=== PATIENT | female | born 1995 | race Caucasian/White ===

== ENCOUNTER 2019-08-05 16:33 | Emergency (ER) | payer OTHER, SELFPAY ==
--- NOTE | 2019-08-05 16:43 | DI.RAD.S_ITS ---
PROCEDURE: XR HAND LT MIN 3V INDICATIONS: left hand injury TECHNIQUE: 3 views of the hand(s) acquired. COMPARISON: None. FINDINGS: Bones: No displaced fractures or dislocations. Carpal bones are normally aligned. No suspicious bony lesions. Soft tissues: No suspicious soft tissue calcifications. IMPRESSION: No left hand fractures. Dictated by: Amrik Hill M.D. on 08/05/2019 at 16:05 Approved by: Amrik Hill M.D. on 08/05/2019 at 16:06
[2019-08-05 16:44] VITALS: BP 120/59; PULSE 82; RESP 18; TEMP 36.6; O2SAT 99; BMI 22.6
--- NOTE | 2019-08-05 16:48 | ED.UPPEXIN ---
HPI - Extremity Injury (Upper) <YAZMIN May - Last Filed: 08/05/19 18:49> General Chief Complaint: Extremity Injury, Upper Stated Complaint: LEFT HAND INJURY Time Seen by Provider: 08/05/19 16:36 Source: patient Mode of arrival: Ambulatory Limitations: no limitations History of Present Illness HPI narrative: 24yo female presents to the ED for left hand pain. She states she smacked the back of her left hand on a metal corner a few minutes ago. She reports immediate swelling and pain to the area. Patient has been applying ice which has decreased the swelling. She reports a dull aching 5/10 pain that is worse with closing her fist and better with rest. Patient denies any previous injury to her hand. Patient denies any other symptoms such as head trauma, chest pain, shortness of breath, dizziness, vomiting, fevers, or any other concerns. Related Data Home Medications Medication Instructions Recorded Confirmed multivitamin 1 tab PO DAILY 04/12/19 04/12/19 norgestimate-ethinyl estradiol 1 tab PO DAILY 04/12/19 04/12/19 omega-3 fatty acids PO 04/12/19 04/12/19 Previous Rx's Medication Instructions Recorded amoxicillin 500 mg tablet 500 mg PO TID #30 tab 04/12/19 Allergies Allergy/AdvReac Type Severity Reaction Status Date / Time lavender (Lavandula Allergy Mild itchy Verified 08/05/19 16:49 angustifolia) mouth, sneezy Review of Systems <YAZMIN May - Last Filed: 08/05/19 18:49> Review of Systems Narrative: REVIEW OF SYSTEMS: GENERAL: Denies fever or chills. HENT: No head trauma. CARDIOVASCULAR: No chest pain or syncope. RESPIRATORY: No shortness of breath or cough. GASTROINTESTINAL: No nausea, vomiting, diarrhea, or constipation. GENITOURINARY: No flank pain or dysuria. MUSCULOSKELETAL: Complains of left pain, see HPI. INTEGUMENTARY: No rash, lesions, or pruritus. NEURO: No numbness, tingling. PSYCH: No behavior or mood changes. Patient History <YAZMIN May - Last Filed: 08/05/19 18:49> Medical History Acne (Chronic ~2002) Asthma (Chronic ~2005) Eczema (Chronic ~2013) Lactose intolerance (Acute) Family History Mother Ovarian cancer Diabetes mellitus Hyperlipidemia Sister Hypertension Grandfather Cancer Grandfather Bladder cancer Mental health problem Grandmother Skin cancer Stroke Social History Smoking Status: Never smoker second hand exposure: No alcohol intake: current (2-4 drinks per month ) substance use type: does not use Smoking Status: Never smoker Exam <YAZMIN May - Last Filed: 08/05/19 18:49> Initial Vital Signs Initial Vital Signs: Vital Signs Temperature 97.9 F 08/05/19 16:44 Pulse Rate 82 08/05/19 16:44 Respiratory Rate 18 08/05/19 16:44 Blood Pressure 120/59 L 08/05/19 16:44 Pulse Oximetry 99 08/05/19 16:44 PHYSICAL EXAMINATION: GENERAL: Well groomed, alert, and cooperative. Answers questions promptly and appropriately. Vital signs noted. HENT: Normocephalic, atraumatic. EYES: Symmetrical, sclera white, no periorbital swelling. CARDIOVASCULAR: S1 and S2 sounds normal. Regular rate and rhythm, no murmurs, clicks, or bruits. No pedal edema. RESPIRATORY: Normal respiratory rate, trachea midline, airway patent. No stridor, nasal flaring or accessory muscle use. Lungs are clear in all mcrae. MUSCULOSKELETAL: There is an area, approximately 7cm x 3 cm of ecchymosis noted to back of left hand between surrounding 2nd and 3rd metacarpals. Patient is able to close hand and makes a fist but reports increased pain, equal strength noted to all 5 fingers with extension and flexion. Full range of motion of left wrist. EXTREMITIES: CMS intact. No pedal edema. SKIN: Warm, dry, soft, appropriate color for ethnicity. No lesions, rashes, or wounds. NEURO: Alert and Oriented X 3. No sensory deficits. PSYCH: Appropriate affect and mood. <Janna Simpson DO - Last Filed: 08/10/19 09:34> Initial Vital Signs Initial Vital Signs: Vital Signs Temperature 97.9 F 08/05/19 16:44 Pulse Rate 82 08/05/19 16:44 Respiratory Rate 18 08/05/19 16:44 Blood Pressure 120/59 L 08/05/19 16:44 Pulse Oximetry 99 08/05/19 16:44 Course <YAZMIN May - Last Filed: 08/05/19 18:49> Orders Ordered: Discontinued Medications Diphtheria/Tetanus/Acell Pertussis (Adacel) 0.5 ml IM .ONCE ONE Stop: 08/05/19 17:38 Last Admin: 08/05/19 17:43 Dose: 0.5 ml Documented by: CONNIE Vital Signs Vital signs: Vital Signs - 8 hr 08/05/19 16:44 08/05/19 17:08 08/05/19 17:48 Temperature 97.9 F 98.5 F Pulse Rate 82 66 Pulse Rate [Left Radial] 86 Respiratory Rate 18 16 Blood Pressure 120/59 L 106/64 Pulse Oximetry 99 99 <Janna Simpson DO - Last Filed: 08/10/19 09:34> Orders Ordered: Discontinued Medications Diphtheria/Tetanus/Acell Pertussis (Adacel) 0.5 ml IM .ONCE ONE Stop: 08/05/19 17:38 Last Admin: 08/05/19 17:43 Dose: 0.5 ml Documented by: CONNIE Vital Signs Vital signs: Vital Signs - 8 hr 08/05/19 16:44 08/05/19 17:08 08/05/19 17:48 Temperature 97.9 F 98.5 F Pulse Rate 82 66 Pulse Rate [Left Radial] 86 Respiratory Rate 18 16 Blood Pressure 120/59 L 106/64 Pulse Oximetry 99 99 MDM - Extremity Injury (Upper) <YAZMIN May - Last Filed: 08/05/19 18:49> Medical Records Attestation: I reviewed the patient's medical records. Lab Data Attestation: I reviewed the patient's lab results. Imaging Data Extremity x-ray #1: Radiologist's Impression: [address] [address] XRay Report Signed Patient: Sidra Her RMR#: [id number] : 1995Acct:[id number] Age/Sex: 24 / FDate of Service: 08/05/19 Loc: ED Accession Number: [id number] Procedure: XR hand LT min 3V Ordering Provider: Janna Simpson D.O. PROCEDURE: XR HAND LT MIN 3V INDICATIONS: left hand injury TECHNIQUE: 3 views of the hand(s) acquired. COMPARISON: None. FINDINGS: Bones: No displaced fractures or dislocations. Carpal bones are normally aligned. No suspicious bony lesions. Soft tissues: No suspicious soft tissue calcifications. IMPRESSION: No left hand fractures. Dictated by: Amrik Hill M.D. on 08/05/2019 at 16:05 Approved by: Amrik Hill M.D. on 08/05/2019 at 16:06 [facility] Narrative Medical decision making narrative: 24-year-old female presenting to the emergency department for swelling on the back of her left hand. Concern for contusion versus sprain versus fracture. X-ray negative for fracture. Due to location and nature of injury I suspect her pain is most likely caused from a contusion and small hematoma. Patient was encouraged to use an Manolo wrap, ice, and ibuprofen as needed for pain. She was encouraged to follow up with her primary care provider in 1-2 weeks for further evaluation if symptoms continue. Return precautions given. Patient agreed to plan of care verbalized understanding Discharge Plan Departure Patient Disposition: Home Clinical Impression: Contusion of hand Qualifiers: Encounter type: initial encounter Laterality: left Qualified Code(s): S60.222A - Contusion of left hand, initial encounter Discharge Date/Time: 08/05/19 17:51 Instructions: DI for Contusion, DI for Hand Pain Activity Restrictions/Additional Instructions: Thank you for entrusting me with your care today. As discussed, your x-rays negative for any fractures. Your pain is most likely caused by a contusion. I suggest continued ice, an Manolo wrap, and ibuprofen as needed for pain. Please follow up with your primary care provider in the next 1-2 weeks if your symptoms continue. Return emergency department for any new or worsening symptoms. Prescriptions: No Action norgestimate-ethinyl estradiol [Tri-Sprintec (28)] 0.18/0.215/0.25 mg-35 mcg (28) tablet 1 tab PO DAILY RF: 0 multivitamin Tablet 1 tab PO DAILY RF: 0 omega-3 fatty acids PO RF: 0 amoxicillin 500 mg tablet 500 mg PO TID Qty: 30 RF: 0 Referrals: Byron Aparicio DO [Primary Care Provider] -
[2019-08-05 17:08] VITALS: PULSE 86
[2019-08-05] MEDS: TET,DIPH,PERTUSS(ACELL),VAC/PF 0.5 ML SYRINGE IM (17:43)
[2019-08-05 17:48] VITALS: BP 106/64; PULSE 66; RESP 16; TEMP 36.9; O2SAT 99
== END 2019-08-05 17:51 | disposition home or self-care (01) ==
PROVIDERS: Emergency Provider Nurse Practitioner; PCP Family Medicine
DX: S60.222A Contusion of left hand, initial encounter (principal); W22.8XXA Striking against or struck by other objects, initial encounter; Z23 Encounter for immunization; Y99.0 Civilian activity done for income or pay
CPT/HCPCS: 73130; 90471; 99283; 90715